=== PATIENT | female | born 1940 | race Caucasian/White ===

== ENCOUNTER 2016-08-03 12:44 | Emergency (ER) | payer OTHER ==
[~2016-08-03] VITALS: Ht 165.1 cm; Wt 74.0 kg
[~2016-08-03 12:44] MED LIST: ASCA500 PO; CALCIUM500 M3 PO; CHOLTAB3 PO; GLUCOSAMIN PO; MSM PO; MULT-506 PO; OMEG120013 PO; PRIMROSE; VITA400C15 PO; [UNRECOGNIZED DRUG - OTHER] PO
[2016-08-03 12:48] VITALS: TEMP 36.4; Ht 165.1 cm; Wt 74.0 kg
[2016-08-03] MEDS ORDERED: HYDROCODONE/ACETAMOPHEN 5/325MG TAB PO STA ×2 (13:46→17:11)
[2016-08-03 14:41] LABS: URINE APPEARANCE CLEAR (CLEAR); URINE BILIRUBIN NEG (NEG); URINE COLOR YELLOW; URINE NITRITE NEG (NEG); URINE PH 6.5 (4.5-7.5); URINE SPECIFIC GRAVITY 1.015 (1.000-1.030); UROBILINOGEN NEG (NEG); ZZUR CULT IF INDIC CLEAN CATCH NO
[2016-08-03 14:42] LABS: MANUAL MICROSCOPIC REQUIRED? NO; REVIEW REQ? NO
--- NOTE | 2016-08-03 15:11 | DIAGNOSTIC IMAGING REPORT ---
L-SPINE MIN 4 VIEWS ROUTINE CLINICAL HISTORY: Low back pain. COMPARISON: None FINDINGS: Incidental note is made of calcified granulomas within the spleen as well as cholecystectomy clips. Alignment of the lumbar spine is anatomic. Vertebral body heights are maintained. There is no fracture or suspicious lesion. There is mild to moderate multilevel disc space narrowing with osteophytosis and facet arthrosis. IMPRESSION: 1. No lumbar spine fracture or subluxation. 2. Moderate multilevel degenerative disc disease and facet arthrosis of the lumbar spine. Electronically signed by: Kd Jensen M.D. 08/03/2016 3:10 PM Dictated Date/Time: 08/03/2016 3:09 PM
[2016-08-03] MEDS ORDERED: PRLSR20 PO (15:57)
--- NOTE | 2016-08-03 19:20 | DIAGNOSTIC IMAGING REPORT ---
MRI OF THE LUMBAR SPINE WITHOUT IV CONTRAST CLINICAL HISTORY: Chronic low back pain. COMPARISON STUDY: Radiographs of lumbar spine dated 08/03/2016 TECHNIQUE: MRI of the lumbar spine is performed utilizing various T1 and T2-weighted sequences in the axial and sagittal planes. IV contrast was not administered for this examination. FINDINGS: Lumbar spine: Vertebral body height and alignment are maintained throughout the lumbar spine. Large hemangiomas are seen in the bodies of L1, L2, and L3. Tiny anterior osteophytes are seen throughout. The transverse and spinous processes are intact. There is no evidence of spondylolysis. No destructive bony lesion is seen. Significant degenerative endplate edema is identified at L5-S1. Intervertebral discs: There is degenerative disc desiccation and loss of height throughout the lumbar spine. Loss of height is moderate at L3-L4 and L4-L5. Spinal cord: The visualized spinal cord is normal in morphology and signal intensity. The conus medullaris terminates at the L1-L2 interspace. The nerve roots of the cauda equina are normal in morphology. T12-L1: Normal as visualized. L1-L2: Unremarkable. L2-L3: There is a small posterior disc bulge with annular fissure. There is no significant acquired compromise of the central canal. Minimal subarticular stenosis is observed. The neural foramina are widely patent. L3-L4: There is a small posterior disc bulge with annular fissure. This causes minimal bilateral subarticular stenosis. The disc may abut the exiting right L3 nerve root. There is no significant acquired compromise of the central canal and the neural foramina are patent. Mild facet arthropathy is of no consequence. L4-L5: There is a posterior disc bulge with annular fissure. In conjunction with hypertrophy of the ligamentum flavum, there is mcbv-vs-sisibbor central canal stenosis at this level. The minimum AP canal diameter measures 8 mm. There is bilateral subarticular stenosis with probable impingement on the exiting bilateral L4 nerve roots, right greater than left. Facet arthropathy is of no consequence. The neural foramina are patent. L5-S1: There is a posterior disc bulge with annular fissure. This causes bilateral subarticular stenosis, and the disc likely abuts the exiting bilateral L5 and the transiting bilateral S1 nerve roots. There is no significant acquired compromise of the central canal. Facet arthropathy causes ueks-sn-uvmuajiu left greater than right neural foraminal stenosis. Sacrum: The visualized sacrum appears intact. Soft tissues: There is fatty atrophy of the paraspinous musculature. The visualized retroperitoneal structures are grossly unremarkable but incompletely assessed. IMPRESSION: 1. Multilevel degenerative disc disease with significant endplate edema at L5-S1. 2. Mmbk-fs-rdbwfsls multilevel lumbosacral spondylosis with acquired compromise of the central canal at L4-L5. See discussion for detailed wkwem-nd-vhcri analysis. 3. No destructive bony lesion is seen. Dictated: 08/03/2016 6:35 PM Transcribed: 08/03/2016 7:20 PM [email or web address] Electronically signed by: Johnny Padilla M.D. 08/03/2016 7:24 PM Dictated Date/Time: 08/03/2016 6:35 PM
[2016-08-03] MEDS ORDERED: HYDR-5688 PO (20:15)
[2016-08-03 20:30] VITALS: BP 169/92; PULSE 72; O2SAT 99
[2016-08-03] MEDS ORDERED: NORCO 5/325MG HOME PACK PO ONE (20:30)
--- NOTE | 2016-08-03 21:11 | EMERGENCY ROOM VISIT NOTE ---
History Report prepared by Christian: Katie Mckinley Under the Supervision of: Dr. Trung Sim M.D. First contact with patient: 13:37 Chief Complaint: BACK PAIN Stated Complaint: PAIN IN LOWER BACK History of Present Illness The patient is a 76 year old female who presents to the Emergency Room with complaints of persistent, worsening lower back pain that began three days ago. She currently rates her discomfort as a 10/10 in severity. The patient states that on Tuesday she was doing yard work, noting that she was twisting and turning often. She reports that she was on her knees doing the work. The patient states that she felt her back get caught while she was doing the work, but states that she was still able to finish all the yard work. She states that over the last three days her pain has been worsening. The patient states that she often goes to a chiropractor and states that she had an appointment today. She reports that after the appointment she was feeling better, but states that once she returned to her apartment and walked up the stairs, she noticed increased lower back pain. The patient states that she took two aspirin back and body tablets this morning, but denies taking any other medication. She states that she has a history of back problems, but nothing ever this severe. The patient additionally notes that she is used to doing a lot of heavy lifting, [place] Pt denies LOC, headache, fevers, chills, diaphoresis, visual changes, neck pain, chest pain, breathing difficulties, nausea, vomiting, abdominal pain, history of malignancy , night sweats, saddle anesthesia, bowel or bladder incontinence, melena, hematochezia, urinary symptoms, numbness, weakness, lymphadenopathy, rash, or other complaints. Source of History: patient Onset: three dyas ago Position: back (lower) Symptom Intensity: 10/10 Timing: worsening, other (persistent) Review of Systems See HPI for pertinent positives and negatives. A total of ten systems were reviewed and were otherwise negative. Past Medical & Surgical Medical Problems: (1) GERD (gastroesophageal reflux disease) Surgical Problems: (1) S/P cholecystectomy Family History Cancer Diabetes mellitus Hypertension Kidney disease Social History Smoking Status: Never Smoker Smokeless Tobacco Use: No Alcohol Use: none Marital Status: single Occupation Status: retired Current/Historical Medications Scheduled PRN Hydrocodone/Acetaminophen 5MG/325MG (Salida 5MG/325MG), 1-2 TABS PO Q6H PRN for Pain Omeprazole (Prilosec), 1 CAP PO DAILY PRN for REFLUX Allergies Coded Allergies: Amoxicillin (Verified Allergy, RASH, 04/12/09) Physical Exam Vital Signs Date Time Temp Pulse Resp B/P Pulse Ox O2 Delivery O2 Flow Rate FiO2 08/03/16 20:30 72 18 169/92 99 08/03/16 17:27 70 20 175/82 98 08/03/16 16:40 68 20 140/79 99 08/03/16 14:31 160/92 08/03/16 14:28 158/100 08/03/16 13:44 77 18 100 08/03/16 13:37 75 08/03/16 13:33 160/104 08/03/16 12:48 36.4 70 20 186/94 100 Room Air Physical Exam GENERAL: Awake, alert, well-appearing, in no distress HENT: Normocephalic, atraumatic. Oropharynx unremarkable. EYES: Normal conjunctiva. Sclera non-icteric. NECK: Supple. No nuchal rigidity. FROM. No JVD. RESPIRATORY: Clear to auscultation. CARDIAC: Regular rate, normal rhythm. Extremities warm and well perfused. Pulses equal. ABDOMEN: Soft, non-distended. No tenderness to palpation. No rebound or guarding. No masses. RECTAL: Deferred. MUSCULOSKELETAL: Chest examination reveals no tenderness. The back is symmetrical on inspection without obvious abnormality, lower lumbar back pain. There is no CVA tenderness to palpation. No joint edema. LOWER EXTREMITIES: Calves are equal size bilaterally and non-tender. No edema. No discoloration. NEURO: Normal sensorium. No sensory or motor deficits noted. SKIN: No rash or jaundice noted. Medical Decision & Procedures ER Provider Diagnostic Interpretation: Radiology results as stated below per my review and radiologist interpretation: L-SPINE MIN 4 VIEWS ROUTINE CLINICAL HISTORY: Low back pain. COMPARISON: None FINDINGS: Incidental note is made of calcified granulomas within the spleen as well as cholecystectomy clips. Alignment of the lumbar spine is anatomic. Vertebral body heights are maintained. There is no fracture or suspicious lesion. There is mild to moderate multilevel disc space narrowing with osteophytosis and facet arthrosis. IMPRESSION: 1. No lumbar spine fracture or subluxation. 2. Moderate multilevel degenerative disc disease and facet arthrosis of the lumbar spine. Electronically signed by: Kd Jensen M.D. 08/03/2016 3:10 PM Dictated Date/Time: 08/03/2016 3:09 PM MRI OF THE LUMBAR SPINE WITHOUT IV CONTRAST CLINICAL HISTORY: Chronic low back pain. COMPARISON STUDY: Radiographs of lumbar spine dated 08/03/2016 TECHNIQUE: MRI of the lumbar spine is performed utilizing various T1 and T2-weighted sequences in the axial and sagittal planes. IV contrast was not administered for this examination. FINDINGS: Lumbar spine: Vertebral body height and alignment are maintained throughout the lumbar spine. Large hemangiomas are seen in the bodies of L1, L2, and L3. Tiny anterior osteophytes are seen throughout. The transverse and spinous processes are intact. There is no evidence of spondylolysis. No destructive bony lesion is seen. Significant degenerative endplate edema is identified at L5-S1. Intervertebral discs: There is degenerative disc desiccation and loss of height throughout the lumbar spine. Loss of height is moderate at L3-L4 and L4-L5. Spinal cord: The visualized spinal cord is normal in morphology and signal intensity. The conus medullaris terminates at the L1-L2 interspace. The nerve roots of the cauda equina are normal in morphology. T12-L1: Normal as visualized. L1-L2: Unremarkable. L2-L3: There is a small posterior disc bulge with annular fissure. There is no significant acquired compromise of the central canal. Minimal subarticular stenosis is observed. The neural foramina are widely patent. L3-L4: There is a small posterior disc bulge with annular fissure. This causes minimal bilateral subarticular stenosis. The disc may abut the exiting right L3 nerve root. There is no significant acquired compromise of the central canal and the neural foramina are patent. Mild facet arthropathy is of no consequence. L4-L5: There is a posterior disc bulge with annular fissure. In conjunction with hypertrophy of the ligamentum flavum, there is zxmj-uw-btzbwcva central canal stenosis at this level. The minimum AP canal diameter measures 8 mm. There is bilateral subarticular stenosis with probable impingement on the exiting bilateral L4 nerve roots, right greater than left. Facet arthropathy is of no consequence. The neural foramina are patent. L5-S1: There is a posterior disc bulge with annular fissure. This causes bilateral subarticular stenosis, and the disc likely abuts the exiting bilateral L5 and the transiting bilateral S1 nerve roots. There is no significant acquired compromise of the central canal. Facet arthropathy causes asvj-yh-fdrlzclx left greater than right neural foraminal stenosis. Sacrum: The visualized sacrum appears intact. Soft tissues: There is fatty atrophy of the paraspinous musculature. The visualized retroperitoneal structures are grossly unremarkable but incompletely assessed. IMPRESSION: 1. Multilevel degenerative disc disease with significant endplate edema at L5-S1. 2. Fojc-cv-rdvpkkfw multilevel lumbosacral spondylosis with acquired compromise of the central canal at L4-L5. See discussion for detailed qkwib-bi-wimcc analysis. 3. No destructive bony lesion is seen. Dictated: 08/03/2016 6:35 PM Transcribed: 08/03/2016 7:20 PM [email or web address] Laboratory Results Test 08/03/16 14:25 Urine Color YELLOW Urine Appearance CLEAR (CLEAR) Urine pH 6.5 (4.5-7.5) Urine Specific [place] 1.015 (1.000-1.030) Urine Protein NEG (NEG) Urine Glucose (UA) NEG (NEG) Urine Ketones TRACE (NEG) Urine Occult Blood NEG (NEG) Urine Nitrite NEG (NEG) Urine Bilirubin NEG (NEG) Urine Urobilinogen NEG (NEG) Urine Leukocyte Esterase SMALL (NEG) Urine WBC (Auto) 1-5 /hpf (0-5) Urine RBC (Auto) 0-4 /hpf (0-4) Urine Hyaline Casts (Auto) 1-5 /lpf (0-5) Urine Epithelial Cells (Auto) 5-10 /lpf (0-5) Urine Bacteria (Auto) NEG (NEG) Laboratory results reviewed by me Medications Administered Medications (Trade) Dose Ordered Sig/Stefany Route Start Time Stop Time Status Last Admin Dose Admin Acetaminophen/ Hydrocodone Bitart ([place] 5/325 Tab) 1 tab NOW STAT PO 08/03/16 13:46 08/03/16 13:48 DC 08/03/16 13:55 1 TAB Acetaminophen/ Hydrocodone Bitart ([place] 5/325 Tab) 1 tab NOW STAT PO 08/03/16 17:11 08/03/16 17:12 DC 08/03/16 17:26 1 TAB Acetaminophen/ Hydrocodone Bitart ([place] 5/325mg Home Pack) 1 homepack UD ONCE PO 08/03/16 20:30 08/03/16 20:31 DC 08/03/16 20:41 1 [facility] ED Course 1340: The patient was evaluated in room B4B. A complete history and physical exam was performed. 134: Ordered Sal[place] 5/325 Tab 1 tab PO. 170: I reevaluated the patient and she is still experiencing pain at this time. I discussed the x-ray findings with her. She is going to have an MRI 1710: Ordered Sal[place] 5/325 Tab 1 tab PO. 1909: I reevaluated the patient and she is still having pain, but not as much. She is awaiting MRI results. 1950: I reevaluated the patient and she is resting comfortably. I discussed the exam findings with her and I discussed the treatment plan. She verbalized complete understanding and agreement. She is ready to go home. 2029: [facility] [place] [facility] Medical Decision Medication Reconciliation: I attest that I have personally reviewed the patient' s current medication list. Blood pressure screening: Patient was found to have an elevated blood pressure and was referred to their primary doctor for recheck and further treatment. Triage Nursing notes reviewed. The patient's presentation and history were concerning for back pain. Etiologies such as lumbago, sciatica, cauda equina, epidural abscess, osteomyelitis, fracture, aortic disease, metastatic disease, infection, renal colic, gastrointestinal, as well as others were entertained. The patient was evaluated. She was neurologically intact. She was given a Salida and sent for x-ray imaging. On reassessment she was still having pain. She was given a second Salida. The x-ray did show degenerative disc disease. The patient noted the pain was still very significant. The patient agreed for MR imaging. This was performed and did show significant stenosis as well as degenerative disc disease. I believe that this is the etiology of her pain as she feels well with rest but has moderate to severe pain on movement. After the second hydrocodone she was doing better and was able to ambulate to the bathroom. I did discuss conservative management. Lifting precautions given. The patient will need close outpatient referral to her PCP. I also discussed following up with Dr. Downing at [facility] spine. The patient was in agreement. Return instructions were outlined carefully and the patient was in agreement. If she worsens in any way she will come back to the Emergency Room for reevaluation. By the evaluation outlined above other emergent etiologies such as those listed in the differential, as well as others, were deemed relatively unlikely. The patient was informed about the findings as listed above. All questions were answered and she was pleased with the treatment. Return instructions were outlined and the patient was discharged in stable condition. The patient was referred to her PCP and [facility] spine for follow- up for a recheck of the current condition. The chart was completed utilizing [employer] Speech voice recognition software. Grammatical errors, random word insertions, pronoun errors, and incomplete sentences are an occasional consequence of this system due to software limitations, ambient noise, and hardware issues. Any formal questions or concerns about the content, text, or information contained within the body of this dictation should be directly addressed to the physician for clarification. [place] Drug Monitoring Program Search Results: patient reviewed within database, no issues identified Impression Primary Impression: Acute low back pain Additional Impression: Degenerative disc disease Scribe Attestation The scribe's documentation has been prepared under my direction and personally reviewed by me in its entirety. I confirm that the note above accurately reflects all work, treatment, procedures, and medical decision making performed by me. Departure Information Dispostion Home / Self-Care Prescriptions Hydrocodone/Acetaminophen 5MG/325MG (Sal[place] 5MG/325MG) Tab 1-2 TABS PO Q6H Y for Pain, #20 TAB Prov: Trung Sim MD 08/03/16 Referrals No Doctor, Assigned (PCP) Wes Lopez M.D. Forms HOME CARE DOCUMENTATION FORM, IMPORTANT VISIT INFORMATION Patient Instructions My [facility] Additional Instructions BACK PAIN INSTRUCTIONS: DO NOT drive, drink alcohol, operate machinery, or perform dangerous activities today. You were given medications in the ER that can affect your ability to safely function or operate a vehicle. Hydrocodone/acetaminophen 5/325mg: Take 1-2 pills every 6 hours as needed for pain. Avoid additional Acetaminophen/Tylenol, alcohol, operating machinery or dangerous equipment, working on ladders or roofs, DRIVING, or situations where being under the influence may be dangerous. It is recommended to use a stool softener such as Colace, 100mg twice daily while taking this medication to avoid constipation. Acetaminophen(Tylenol) may be used for fever or pain. Use 1000mg every six hours as needed. Avoid using more than 4000mg in a 24 hour period. This medication can be taken if you need to drive, work, or perform activities which may be dangerous when taking narcotic pain medication. Rest and avoid heavy lifting until your symptoms resolve and then gradually return to full activity. A good rule of thumb is if it hurts your back to perform a certain activity, then it should be avoided until you are healthy again. A heating pad, warm compresses, or a hot shower may help with tight muscles and can be done several times a day as needed. You may also try ice compresses for 20 minutes at a time four times daily for 2- 3 days. Continue current medications. Return to the ER immediately for any numbness, tingling, severe pain, loss of control of your bowels or bladder, inability to walk, or as needed. Follow up with your primary care physician within 2-3 days for a recheck of your current condition. Call Dr. Downing as discussed this week for a follow-up regarding your back. MRI results: T12-L1: Normal as visualized. L1-L2: Unremarkable. L2-L3: There is a small posterior disc bulge with annular fissure. There is no significant acquired compromise of the central canal. Minimal subarticular stenosis is observed. The neural foramina are widely patent. L3-L4: There is a small posterior disc bulge with annular fissure. This causes minimal bilateral subarticular stenosis. The disc may abut the exiting right L3 nerve root. There is no significant acquired compromise of the central canal and the neural foramina are patent. Mild facet arthropathy is of no consequence. L4-L5: There is a posterior disc bulge with annular fissure. In conjunction with hypertrophy of the ligamentum flavum, there is lzfr-lq-mlehwxme central canal stenosis at this level. The minimum AP canal diameter measures 8 mm. There is bilateral subarticular stenosis with probable impingement on the exiting bilateral L4 nerve roots, right greater than left. Facet arthropathy is of no consequence. The neural foramina are patent. L5-S1: There is a posterior disc bulge with annular fissure. This causes bilateral subarticular stenosis, and the disc likely abuts the exiting bilateral L5 and the transiting bilateral S1 nerve roots. There is no significant acquired compromise of the central canal. Facet arthropathy causes fyka-yi-fpebunno left greater than right neural foraminal stenosis. Problem Qualifiers
[2016-10-04] MEDS ORDERED: VITACAP26 (11:00)
[2016-10-04] MEDS ORDERED: ERGO500037 PO (11:00)
[2016-10-04] MEDS ORDERED: VITA1CRE (11:00)
[2016-10-04] MEDS ORDERED: MULT-506 PO (11:00)
== END 2016-08-03 20:45 | disposition home or self-care (01) ==
LOC: C.EDB 12:47
DX: M54.5 Low back pain (principal); M51.36 Other intervertebral disc degeneration, lumbar region; K21.9 Gastro-esophageal reflux disease without esophagitis; Z90.49 Acquired absence of other specified parts of digestive tract; Z88.1 Allergy status to other antibiotic agents; Z80.9 Family history of malignant neoplasm, unspecified; Z83.3 Family history of diabetes mellitus; Z82.49 Family history of ischemic heart disease and other diseases of the circulatory system; Z84.1 Family history of disorders of kidney and ureter